=== PATIENT | female | born 1980 | race Two or more races ===

== ENCOUNTER 2016-12-22 16:14 | Emergency (ER) | payer MEDICAID, OTHER ==
[2016-12-22] MEDS ORDERED: TUSS15SY PO (17:36)
--- NOTE | 2016-12-22 17:36 | PD ---
HPI Chief Complaint Left-sided abdominal pain just today Date Seen: December 22, 2016 Travel History International Travel<30 Days: No Contact w/Intl Traveler<30Days: No Known Affected Area: No History of Present Illness HPI This patient is 36-year-old G 3 P2 at [address] Goss who presents complaining of abdominal pain on the left side mainly today. She's had that developed after she had has been coughing all week ,when she coughs it it's really starts to hurt area and she denies leakage of fluid or bleeding or contractions. heart rate tracing is reactive and there are no regular contractions seen. Para: 2 : 3 History Obstetric History Obstetric History 2 vaginal deliveries both at term Social History Alcohol Use: No Tobacco Use: No Substance Abuse: No Allergies-Medications (Allergen,Severity, Reaction): Coded Allergies: No Known Allergies (Unverified , 11/28/14) Home Meds No Active Prescriptions or Reported Meds Review of Systems General / Constitutional: No: Fever, Weight Gain, Chills, Other Eyes: No: Diploplia, Blurred Vision, Visual changes, Pain, Photophobia HENT: No: Headaches, Vertigo, Lightheadedness Cardiovascular: No: Irregular Rhythm, Chest Pain or Discomfort, Palpitations, Tachycardia, Syncope, Varicosities, Edema, Cyanosis Respiratory: Cough, No: Short of Breath, Other Gastrointestinal: Abdominal Pain, No: Nausea, Vomiting, Diarrhea Genitourinary: No: Decreased Urinary Output, Oliguria Musculoskeletal: No: Limited ROM, Weakness, Cramping, Edema, Pain Skin: No Rash, No Itching, No Dryness, No Lumps, No Change in Pigmentation, No Change in Nails, No Alopecia, No Lesions Neurologic: No: Weakness, Dizziness, Syncope, Focal Abnormalities, Coordination Problem, Headache, Slurred Speech, Seizures Psychiatric: No: Depression, Suicidal Ideations, Homicidal Ideation Endocrine: No: Heat Intolerance, Cold Intolerance, Polydipsia, Polyuria, Other Physical Exam Narrative GENERAL: Well-nourished, well-developed patient. SKIN: Warm and dry. HEAD: Normocephalic and atraumatic. EYES: No scleral icterus. No injection or drainage. ENT: No nasal drainage noted. Mucous membranes pink. Airway patent. NECK: Supple, trachea midline. No JVD. CARDIOVASCULAR: Regular rate and rhythm without murmurs, gallops, or rubs. RESPIRATORY: Breath sounds equal bilaterally. No accessory muscle use. BREASTS: Bilateral exam showed no masses , no retractions, no nipple discharge. ABDOMEN/GI: Abdomen soft, non-tender, bowel sounds present, no rebound, no guarding Gravid to [-32] weeks size Fundal Height: [32-] GENITOURINARY: External Genitalia: intact and normal in appearance BUS glands: [-] Cervix: [-]closed Dilatation: [-] closed Effacement: [-] thick Station: [-3] Membranes: [intact ] Uterine Contractions: [none-] FHT's: Category: [1-] Baseline: [133-] Reactive: [yes-] Variability: [-mod] Decels: [-none] EXTREMITIES: No cyanosis or edema. BACK: Nontender without obvious deformity. No CVA tenderness. NEUROLOGICAL: Awake and alert. Motor and sensory grossly within normal limits. Five out of 5 muscle strength in all muscle groups. Normal speech. Data Data Orders Vital Signs (Adult) .ON ADMISSION (12/22/16 17:15) ^ Labor Status (12/22/16 17:15) Urinalysis - C+S If Indicated (12/22/16 17:15) MDM Interpretation(s) Patient is 36-year-old 32 weeks who presents with abdominal pain today mainly after she been coughing all week, no bleeding or rupture the membranes heart rate tracing is reactive and she is not bess. Cervix is closed and high. Urinalysis is pending at this time but if it is positive will treat with antibiotics it is likely to be negative but there is pending at time of this dictation patient was offered a pain shot but she felt that she did not want for her pain. I recommended she take Tylenol 1 or 2 every 4 hours for pain, heating pad on her abdomen is fine, and we'll prescribe her of Tussionex for cough Plan The patient to be at bedrest over the next 24-48 hours using above-mentioned Tylenol and cough medications. And to follow-up with Dr. Goss the first part of this week if symptoms persist Diagnosis Diagnosis: Primary Impression: Abdominal pain during in third trimester Additional Impression: Cough Disposition: 01 DISCHARGE HOME Condition: Stable Scripts Dextromethorphan Liq (Tussin Cough Liq)15 Mg/5 Ml Syp10 Ml PO Q8H PRN (COUGH) # 1 BOTTLE Ref 0 Prov:Deacon Quigley II, MD 12/22/16 Deacon Quigley II, MD December 22, 2016 17:36
[2016-12-22 18:56] LABS: BLOOD, URINE NEG (NEG); GLUCOSE,URINE NEG (NEG); KETONE, URINE NEG (NEG); MUCUS URINE FEW /lpf (OCC); NITRITE,URINE NEG (NEG); SQUAMOUS EPITHELIAL CELL URINE <1 /hpf (0-5); URINE COLOR LIGHT-YELLOW (YELLW/STRAW)
[2016-12-22 18:57] LABS: COMMENT (UR) CULT NOT INDICATED; CULTURE IF INDICATED CULT NOT INDICATED
== END 2016-12-22 18:05 | disposition home or self-care (01) ==
LOC: HOBED 16:14
DX: O26.893 Other specified pregnancy related conditions, third trimester (principal); R10.9 Unspecified abdominal pain; R05 Cough
CPT/HCPCS: 81001; 99284

== ENCOUNTER 2017-02-12 19:52 | Emergency (ER) | payer MEDICAID ==
[~2017-02-12 19:52] MED LIST: TUSS15SY PO
--- NOTE | 2017-02-12 20:36 | PD ---
HPI Chief Complaint Contractions Date Seen: Feb 12, 2017 Travel History International Travel<30 Days: No Contact w/Intl Traveler<30Days: No Known Affected Area: No History of Present Illness HPI This patient is a 36-year-old [address] Goss for care presents complaining of contractions through the day but are painful. Denies bleeding or ruptured membranes. heart rate tracing is reactive and she is bess irregularly now. records are available. Para: 2 : 3 History Past Medical History Narrative Medical Positive history of asthma .,history of HSV and she has been on Valtrex intermittently and acyclovir some point in the past no recent outbreaks noted Obstetric History Obstetric History 2 vaginal deliveries Social History Alcohol Use: No Tobacco Use: No Substance Abuse: No Allergies-Medications (Allergen,Severity, Reaction): Coded Allergies: No Known Allergies (Unverified , 11/28/14) Home Meds Active Scripts Dextromethorphan Liq (Tussin Cough Liq)15 Mg/5 Ml Syp10 Ml PO Q8H PRN (COUGH) # 1 BOTTLE Ref 0 Prov:Deacon Quigley II, MD 12/22/16 Review of Systems General / Constitutional: No: Fever, Weight Gain, Chills, Other Eyes: No: Diploplia, Blurred Vision, Visual changes, Pain, Photophobia HENT: No: Headaches, Vertigo, Lightheadedness Cardiovascular: No: Irregular Rhythm, Chest Pain or Discomfort, Palpitations, Tachycardia, Syncope, Varicosities, Edema, Cyanosis Respiratory: No: Cough, Short of Breath, Other Gastrointestinal: Abdominal Pain, No: Nausea, Vomiting, Diarrhea Genitourinary: No: Decreased Urinary Output, Oliguria Musculoskeletal: No: Limited ROM, Weakness, Cramping, Edema, Pain Skin: No Rash, No Itching, No Dryness, No Lumps, No Change in Pigmentation, No Change in Nails, No Alopecia, No Lesions Neurologic: No: Weakness, Dizziness, Syncope, Focal Abnormalities, Coordination Problem, Headache, Slurred Speech, Seizures Psychiatric: No: Depression, Suicidal Ideations, Homicidal Ideation Endocrine: No: Heat Intolerance, Cold Intolerance, Polydipsia, Polyuria, Other Physical Exam Narrative GENERAL: Well-nourished, well-developed patient. SKIN: Warm and dry. HEAD: Normocephalic and atraumatic. EYES: No scleral icterus. No injection or drainage. ENT: No nasal drainage noted. Mucous membranes pink. Airway patent. NECK: Supple, trachea midline. No JVD. CARDIOVASCULAR: Regular rate and rhythm without murmurs, gallops, or rubs. RESPIRATORY: Breath sounds equal bilaterally. No accessory muscle use. BREASTS: Bilateral exam showed no masses , no retractions, no nipple discharge. ABDOMEN/GI: Abdomen soft, non-tender, bowel sounds present, no rebound, no guarding Gravid to [-39] weeks size Fundal Height: [39-] GENITOURINARY: External Genitalia: intact and normal in appearance BUS glands: [-] Cervix: [-] Dilatation: [3-] Effacement: [-50] Station: [-3] Presentation: [-vtx] Membranes: [intact ] Uterine Contractions: [irreg-] FHT's: Category: [1-] Baseline: [-133] Reactive: [-yes] Variability: [-mod] Decels: [0-] EXTREMITIES: No cyanosis or edema. BACK: Nontender without obvious deformity. No CVA tenderness. NEUROLOGICAL: Awake and alert. Motor and sensory grossly within normal limits. Five out of 5 muscle strength in all muscle groups. Normal speech. MDM Interpretation(s) This patient is a 36-year-old 39 weeks presents clinically contractions, denies bleeding or ruptured membranes. heart rate tracing is reactive and she is bess irregularly. Patient's cervical exam consistent with her typical multiparous cervix and that it is very posterior 50 % at most it's fairly thick cervix and dilated 3 cm. The patient does not appear to be in distress or significant pain really and just general observation Plan Plan to discharge home to let her rest with heating pad or in the bathtub observe what's going on, return for increasing pain bleeding or leakage of fluid. Otherwise follow-up with her OB provider Diagnosis Diagnosis: Primary Impression: False labor after 37 weeks of gestation without delivery Disposition: 01 DISCHARGE HOME Condition: Stable Deacon Quigley II, MD Feb 12, 2017 20:36
== END 2017-02-12 20:30 | disposition home or self-care (01) ==
LOC: HOBED 19:52
DX: O47.1 False labor at or after 37 completed weeks of gestation (principal); Z87.09 Personal history of other diseases of the respiratory system; Z87.2 Personal history of diseases of the skin and subcutaneous tissue; Z3A.39 39 weeks gestation of pregnancy
CPT/HCPCS: 99282

== ENCOUNTER 2017-02-20 12:40 | Inpatient (IN) | payer MEDICAID ==
[2017-02-20] VITALS (35 sets, daily range): BP systolic 94–142; BP diastolic 57–104; PULSE 75–238; RESP 17–19; TEMP 97.7–98.2; O2SAT 97–100
[~2017-02-20] VITALS: Ht 149.9 cm; Wt 83.2 kg
[2017-02-20] MEDS ORDERED: VALT500T PO (13:22)
[2017-02-20] MEDS: LACTATED RINGER'S 1000 ML INJ 1,000 ML IV SCH ×2 (13:38→20:47)
[2017-02-20] MEDS ORDERED: LACTATED RINGER'S 1000 ML INJ 1,000 ML IV PRN (13:38)
[2017-02-20] MEDS ORDERED: OXYTOCIN 30 UNITS-500ML PREMIX 500 ML IV ONE ×2 (13:45→22:00)
[2017-02-20] MEDS ORDERED: ONDANSETRON HCL 4 MG/2 ML VIAL IV PRN (13:45)
[2017-02-20] MEDS ORDERED: CITRIC ACID-SODIUM CITRATE LIQ 30 ML UDC PO SCH (13:45)
[2017-02-20] MEDS ORDERED: SODIUM CHLORID 0.9% 500 ML INJ 500 ML IV PRN (13:45)
[2017-02-20] MEDS ORDERED: LIDOCAINE HCL 1% 50 ML VIAL I-DERMAL PRN (13:45)
[2017-02-20] MEDS ORDERED: LIDOCAINE HCL 1% 50 ML VIAL INFIL PRN (13:45)
[2017-02-20] MEDS ORDERED: MINERAL OIL 10 ML VIAL TOPICAL PRN (13:45)
--- NOTE | 2017-02-20 13:46 | HHI.HP ---
HPI Chief Complaint seen by Dr. Goss in office, pt c/o labor pain, contractions, pelvic pressure , crying due to pain Date Seen: Feb 20, 2017 Time Seen: 11:40 Travel History International Travel<30 Days: No Contact w/Intl Traveler<30Days: No Known Affected Area: No History of Present Illness HPI 36 yo with EDC 02/16/17 presents to routine OB visit at office with c/o pelvic pressure, contractions since yesterday. No LOF or VB. Endorses good FM. Pain 12/26. Crying due to pain. Has been taking Valtrex for prophylaxis as prescribed, no prodrome, no lesions. Para: 2 : 3 Last Menstrual Period: May 12, 2016 Miscarriage: 0 : 0 History Past Medical History Narrative Medical asthma HSV advanced maternal age Obstetric History Obstetric History G1 = FT 11/02/2006 female 7#6oz born in [place] G2 = FT 06/24/2009 female 7#12oz born in [place] G3 = current, female Past Surgical History Narrative Surgical denies Family History Family History: Negative Social History Alcohol Use: No Tobacco Use: No Substance Abuse: No Allergies-Medications (Allergen,Severity, Reaction): Coded Allergies: No Known Allergies (Unverified , 02/20/17) Home Meds Reported Medications Valacyclovir (Valtrex)500 Mg Pwl079 Mg PO DAILY #30 TAB Ref 0 02/20/17 Discontinued Scripts Dextromethorphan Liq (Tussin Cough Liq)15 Mg/5 Ml Syp10 Ml PO Q8H PRN (COUGH) # 1 BOTTLE Ref 0 Prov:Deacon Quigley II, MD 12/22/16 Review of Systems General / Constitutional: Weight Gain, No: Fever, Chills, Other Eyes: No: Diploplia, Blurred Vision, Visual changes, Pain, Photophobia HENT: No: Headaches, Vertigo, Lightheadedness Cardiovascular: No: Irregular Rhythm, Chest Pain or Discomfort, Palpitations, Tachycardia, Syncope, Varicosities, Edema, Cyanosis Respiratory: No: Cough, Short of Breath, Other Gastrointestinal: No: Nausea, Vomiting, Diarrhea Genitourinary: Pelvic Pain (contractions), No: Decreased Urinary Output, Oliguria Musculoskeletal: No: Limited ROM, Weakness, Cramping, Edema, Pain Skin: No Rash, No Itching, No Dryness, No Lumps, No Change in Pigmentation, No Change in Nails, No Alopecia, No Lesions Neurologic: No: Weakness, Dizziness, Syncope, Focal Abnormalities, Coordination Problem, Headache, Slurred Speech, Seizures Psychiatric: No: Depression, Suicidal Ideations, Homicidal Ideation Endocrine: No: Heat Intolerance, Cold Intolerance, Polydipsia, Polyuria, Other Physical Exam Narrative GENERAL: Well-nourished, well-developed patient. SKIN: Warm and dry. HEAD: Normocephalic and atraumatic. EYES: No scleral icterus. No injection or drainage. ENT: No nasal drainage noted. Mucous membranes pink. Airway patent. NECK: Supple, trachea midline. No JVD. CARDIOVASCULAR: Regular rate and rhythm without murmurs, gallops, or rubs. RESPIRATORY: Breath sounds equal bilaterally. No accessory muscle use. BREASTS: deferred ABDOMEN/GI: Abdomen soft, non-tender, bowel sounds present, no rebound, no guarding Gravid to 40 weeks size Fundal Height: 40 GENITOURINARY: exam per Dr. Goss External Genitalia: intact and normal in appearance BUS glands: [wnl] Cervix: [mid] Dilatation: [4] Effacement: [50] Station: [-3] Presentation: [vtx] Membranes: [intact FHT's: 8/8 BPP in office EXTREMITIES: No cyanosis or edema. BACK: Nontender without obvious deformity. No CVA tenderness. NEUROLOGICAL: Awake and alert. Motor and sensory grossly within normal limits. Five out of 5 muscle strength in all muscle groups. Normal speech. Data Data Vital Signs Reviewed: Yes Orders Admit To Inpatient (02/20/17 ) Code Status (02/20/17 13:38) Vital Signs (Adult) .Per protocol (02/20/17 13:38) Activity Oob Ad Muriel (02/20/17 13:38) Heart (02/20/17 13:38) Amnioinfusion (02/20/17 13:38) Urinary Catheter Management .ONCE (02/20/17 13:38) Diet Liquid (02/20/17 Lunch) Lactated Ringer's 1000 Ml Inj (Lr 1000 M (02/20/17 13:38) Lactated Ringer's 1000 Ml Inj (Lr 1000 M (02/20/17 13:38) Sodium Chlorid 0.9% 500 Ml Inj (Ns 500 M (02/20/17 13:45) Sodium Chlor 0.9% 1000 Ml Inj (Ns 1000 M (02/20/17 13:58) Lidocaine 1% Inj (50 Ml) (Xylocaine 1% I (02/20/17 13:45) Citric Acid-Sodium Citrate Liq (Bicitra (02/20/17 13:45) Ondansetron Inj (Zofran Inj) (02/20/17 13:45) Fentanyl Inj (Fentanyl Inj) (02/20/17 13:45) Fentanyl Inj (Fentanyl Inj) (02/20/17 13:45) Complete Blood Count With Diff (02/20/17 13:38) Hold Clot (02/20/17 13:38) Abo/Rh Blood Type (02/20/17 13:38) Urinalysis - C+S If Indicated (02/20/17 13:38) Resp Oxygen Non Rebreathe Mask (02/20/17 ) ^ Epidural / Intrathecal Infus (02/20/17 13:38) Oxytocin 30 Units-500ml Premix (Pitocin (02/20/17 13:45) Lidocaine 1% Inj (50 Ml) (Xylocaine 1% I (02/20/17 13:45) Light Mineral Oil (Muri-Lube Oil) (02/20/17 13:45) Inpatient Certification (02/20/17 ) Specimen To Be Collected PRN (02/20/17 13:38) Assessment/Plan Problem List: (1) Labor and delivery indication for care or intervention Assessment and Plan 36 yo with EDC 02/16/17, presents to office visit in labor, sent to L&D 1) labor: admit, augment as necessary, epidural if desired, anticipate 2) GBS neg 3) h/o HSV: no active lesions or prodrome, on preventative Valtrex since 36 wks 4) AMA: neg cfDNA & neg msAFP, normal anatomy 5) asthma, mild intermittent, albuterol INH prn 6) status: vertex, female, 8/8 BPP in office Discharge Planning routine, 2d PP Phoebe Hernandez MD Feb 20, 2017 13:46
[2017-02-20 13:52] LABS: AUTOMATED NEUTROPHIL # 8.3 TH/MM3 (1.8-7.7); BASOPHIL % 0.4 % (0.0-2.0); EOSINOPHIL # 0.1 TH/MM3 (0-0.4); EOSINOPHIL % 1.4 % (0.0-4.0); HEMATOCRIT 38.2 % (35.0-46.0); HEMO FLAGS DIFF FINAL; LYMPH % 13.2 % (9.0-44.0); LYMPHOCYTE # 1.4 TH/MM3 (1.0-4.8); MEAN CELL VOLUME 88.1 FL (80.0-100.0); MEAN CORPUSCULAR HEMOGLOBIN 30.1 PG (27.0-34.0); MEAN CORPUSCULAR HGB CONC 34.2 % (32.0-36.0); MONO % 7.2 % (0.0-8.0); NEUT % 77.8 % (16.0-70.0); PLATELET COUNT 225 TH/MM3 (150-450); RED BLOOD COUNT 4.34 MIL/MM3 (4.00-5.30); RED CELL DISTRIBUTION WIDTH 18.5 % (11.6-17.2); WHITE BLOOD COUNT 10.7 TH/MM3 (4.0-11.0)
[2017-02-20] MEDS ORDERED: SODIUM CHLOR 0.9% 1000 ML INJ 1,000 ML IV PRN (13:58)
[2017-02-20] MEDS ORDERED: OXYTOCIN 30 UNITS-500ML PREMIX 500 ML IV SCH (14:00)
[2017-02-20 14:01] LABS: BLOOD, URINE NEG (NEG); GLUCOSE,URINE NEG (NEG); KETONE, URINE NEG (NEG); NITRITE,URINE NEG (NEG); URINE COLOR LIGHT-YELLOW (YELLW/STRAW)
[2017-02-20 14:06] LABS: COMMENT (UR) CULT NOT INDICATED; CULTURE IF INDICATED CULT NOT INDICATED
[2017-02-20] MEDS ORDERED: ePHEDrine/NS 25 MG/5 ML SYR ONE (19:15)
[2017-02-20] MEDS ORDERED: fentaNYL 2MCG-BUPIV 0.125% INJ 100 ML ONE (19:15)
[2017-02-20] MEDS ORDERED: BUPIVACAINE HCL PF 0.25% 10 ML VIAL ONE (19:26)
[2017-02-20] MEDS ORDERED: ePHEDrine/NS 25 MG/5 ML SYR IV PRN (20:45)
[2017-02-20] MEDS ORDERED: DO NOT ADMINISTER ANTICOAGULANTS PRN (20:45)
[2017-02-20] MEDS ORDERED: NO SYSTEM NARCOTICS PRN (20:45)
[2017-02-20] MEDS ORDERED: fentaNYL 2MCG-BUPIV 0.125% 100 ML EPIDURAL SCH (20:45)
[2017-02-20] MEDS ORDERED: LACTATED RINGER'S 1000 ML INJ 1,000 ML IV ONE (21:08)
[2017-02-20] MEDS ORDERED: OXYTOCIN 10 UNIT/ML AMP ONE (21:17)
[2017-02-20] MEDS ORDERED: ceFAZolin INJ 1,000 MG VIAL ONE (21:18)
[2017-02-20] MEDS ORDERED: LACTATED RINGER'S 1000 ML INJ 1,000 ML IV SCH (21:38)
--- NOTE | 2017-02-20 21:58 | PD.OB.DELI ---
Procedure Note Section Procedure Pre Op Diagnosis: (1) Face presentation of fetus Post Op Diagnosis: (1) Face presentation of fetus (2) Status post primary low transverse section Performed by Phoebe Hernandez Procedure: Primary Low Transverse Sec Indication for delivery: malposition (face presentation in active labor) Informed consent obtained: For anesthesia, For procedure Confirmed correct: Other (due to STAT nature of procedure no time out) Anesthesia: None (general endotracheal) Medication prior to procedure: As documented in eMAR Monitoring during procedure: Blood pressure monitoring, electroencephalographic technician, Pulse oximetry Urinary catheter: Inserted using sterile technique (in room during labor process), ml urine output (300) Sterile preparation: With 10% povidone iodine (Betadine), With drapes to expose affected area Position: Supine with wedge to right side Operative Features Skin Incision: Pfannenstiel Uterine Incision: Low transverse w/knife / blunt ext Membranes Ruptured: Previously Presentation: Face presentation (mentum posterior) Delivery of : Uneventful Infant: Female One Minute : 9 Five Minute : 9 Weight: 8#3oz Status of : Viable, Cord blood, Nursery present Placenta delivered: Intact Medications: Antibiotics (Ancef 2g IV) Estimated blood loss: 500 mL Procedure tolerated: Well Maternal Condition: Stable Condition: Stable Procedure in detail see dictated op note Phoebe Hernandez MD Feb 20, 2017 21:57
[2017-02-20] MEDS: SODIUM CHLORIDE 0.9% FLUSH 10 ML FLUSH IV FLUSH SCH (22:00)
[2017-02-20] MEDS ORDERED: ZOLPIDEM TARTRATE 5 MG TAB PO PRN (22:00)
[2017-02-20] MEDS ORDERED: oxyCODONE/ACETAMINOPHEN 5 MG/325 MG TAB PO PRN (22:00)
[2017-02-20] MEDS ORDERED: IBUPROFEN 600 MG TAB PO PRN (22:00)
[2017-02-20] MEDS ORDERED: KETOROLAC TROMETHAMINE 60 MG/2 ML (IM) VIAL IM PRN (22:00)
[2017-02-20] MEDS ORDERED: ACETAMINOPHEN 1000 MG/100 ML VIAL IV ONE ×2 (22:00→22:24)
[2017-02-20] MEDS ORDERED: SODIUM CHLORIDE 0.9% FLUSH 10 ML FLUSH IV FLUSH PRN (22:00)
[2017-02-20] MEDS ORDERED: ACETAMINOPHEN 325 MG TAB PO PRN (22:00)
[2017-02-20] MEDS ORDERED: ONDANSETRON HCL 4 MG/2 ML VIAL IV PUSH PRN (22:00)
[2017-02-20] MEDS ORDERED: fentaNYL CITRATE 250 MCG/5 ML AMP ONE (22:03)
[2017-02-20] MEDS ORDERED: MORPHINE SULFATE PF 5 MG/10 ML VIAL ONE (22:04)
[2017-02-20] MEDS ORDERED: OXYTOCIN 30 UNITS-500ML PREMIX 500 ML ONE (22:23)
[2017-02-20] MEDS ORDERED: PROPOFOL 200 MG/20 ML AMP IV PUSH ONE (22:34)
[2017-02-20] MEDS ORDERED: LACTATED RINGER'S 1,000 ML BAG IV ONE (22:34)
[2017-02-20] MEDS ORDERED: KETOROLAC TROMETHAMINE 30 MG/ML (IVP) VIAL ONE (22:48)
[2017-02-20] MEDS ORDERED: SODIUM CHLORIDE 0.9% FLUSH 5 ML FLUSH ONE (23:43)
[2017-02-21] VITALS (9 sets, daily range): BP systolic 95–106; BP diastolic 61–67; PULSE 86–113; RESP 17–26; TEMP 98–98.8; O2SAT 98–100
[2017-02-21 00:19] LABS: AUTOMATED NEUTROPHIL # 15.3 TH/MM3 (1.8-7.7); BASOPHIL % 0.2 % (0.0-2.0); HEMATOCRIT 32.3 % (35.0-46.0); HEMO FLAGS DIFF FINAL; LYMPH % 5.2 % (9.0-44.0); LYMPHOCYTE # 0.9 TH/MM3 (1.0-4.8); MEAN CELL VOLUME 88.2 FL (80.0-100.0); MEAN CORPUSCULAR HEMOGLOBIN 29.9 PG (27.0-34.0); MEAN CORPUSCULAR HGB CONC 33.9 % (32.0-36.0); NEUT % 91.6 % (16.0-70.0); PLATELET COUNT 278 TH/MM3 (150-450); RED BLOOD COUNT 3.67 MIL/MM3 (4.00-5.30); RED CELL DISTRIBUTION WIDTH 18.3 % (11.6-17.2); WHITE BLOOD COUNT 16.7 TH/MM3 (4.0-11.0)
[2017-02-21] MEDS ORDERED: ceFAZolin INJ 1,000 MG VIAL ONE (00:27)
[2017-02-21] MEDS ORDERED: METHYLERGONOVINE MALEATE 0.2 MG/ML VIAL ONE ×5 (00:52→01:30)
[2017-02-21] MEDS ORDERED: MISOPROSTOL 200 MCG TAB ONE (01:01)
[2017-02-21 01:16] LABS: APTT (PATIENT) 28.1 SEC (24.3-30.1); INTERNATIONAL NORMALIZED RATIO 0.9 RATIO
[2017-02-21 01:26] LABS: BLOOD GAS BASE EXCESS -8.5 mmol/L (-2-2); BLOOD GAS CARBOXYHEMOGLOBIN 1.5 % (0-4); BLOOD GAS HCO3 16 mmol/L (22-26); BLOOD GAS METHEMOGLOBIN 1.1 % (0-2); BLOOD GAS O2 HGB SATURATION 97 % (90-100); BLOOD GAS OXYGEN CONTENT 14.9 Vol % (12.0-20.0); BLOOD GAS PCO2 31 mmHg (38-42); BLOOD GAS PO2 246 mmHg (61-120); BLOOD GAS TOTAL HGB 10.5 G/DL (12.0-16.0); TEMP CORR TO 98.6
[2017-02-21 01:27] LABS: CRITICAL VALUE YES; FIO2 50 %; OXYGEN DEVICE VENTILATOR; STAT YES; VENT SETTINGS O.R. GAS
--- NOTE | 2017-02-21 02:29 | RADRPT ---
EXAM DATE/TIME: 02/21/2017 02:01 [facility] COMPARISON: No previous studies available for comparison. INDICATIONS : Evalute for foreign body. Labor and delivery. MEDICAL HISTORY : None. SURGICAL HISTORY : None. ENCOUNTER: Initial ACUITY: 1 day PAIN SCORE: Non-responsive. LOCATION: Bilateral abdomen. FINDINGS: Supine view of the abdomen was performed. The abdominal bowel gas pattern is normal. No abnormal ma sses, calcifications, or organomegaly is seen. The osseous structures are unremarkable.clips in pelv is. CONCLUSION: No foreign body. Robert Hilton MD on February 21, 2017 at 2:26 Board Certified Radiologist. This report was verified electronically.
[2017-02-21] MEDS ORDERED: diphenhydrAMINE HCL 50 MG/ML VIAL IV PRN (02:45)
[2017-02-21] MEDS ORDERED: NALOXONE HCL 0.4 MG/ML AMP IV PRN (02:45)
[2017-02-21] MEDS ORDERED: SENNOSIDES 8.6 MG TAB PO PRN (02:45)
[2017-02-21] MEDS ORDERED: BISACODYL 10 MG SUPP RECTAL PRN (02:45)
[2017-02-21] MEDS ORDERED: LACTULOSE SYRUP 20 GM/30 ML CUP PO PRN (02:45)
[2017-02-21] MEDS ORDERED: MAGNESIUM HYDROXIDE SUSP 30 ML CUP PO PRN (02:45)
[2017-02-21] MEDS ORDERED: LACTATED RINGER'S 1000 ML INJ 1,000 ML IV SCH (02:58)
--- NOTE | 2017-02-21 03:02 | HHI.PR ---
Immediate Post Op Note Procedure Date: Feb 21, 2017 Pre Op Diagnosis: (1) Postoperative hypotension (2) Postoperative hematoma involving genitourinary system following genitourinary procedure Post Op Diagnosis: (1) Postoperative hematoma involving genitourinary system following genitourinary procedure Surgeon: Phoebe Hernandez MD Intraoperative Consult: General/Trauma Surgery : Meka Velarde MD Employee Welfare Manager(s): Essence Eugene MD Intraoperative Consult General/Trauma Surgeon Meka Velarde MD Procedure: Exploratory laparotomy Ligation R uterine artery Findings: large right broad ligament and retroperitoneal hematoma laceration of accessory branches of R uterine artery Complications: right broad ligament hematoma/retroperitoneal hematoma following STAT delivery, change in status approximately 1 hour 15 min after concluded Specimen(s) removed: none Estimated blood loss: 300 mL Anesthesia: General Drains: None Fluids: 3800mL crystalloid, 2 units PRBC IVF, PRBC Patient to: PACU (then to [facility]) Patient Condition: Good Phoebe Hernandez MD Feb 21, 2017 03:02
[2017-02-21] MEDS ORDERED: fentaNYL CITRATE 250 MCG/5 ML AMP ONE (03:12)
[2017-02-21 05:42] LABS: AUTOMATED NEUTROPHIL # 14.2 TH/MM3 (1.8-7.7); BASOPHIL % 0.1 % (0.0-2.0); HEMO FLAGS DIFF FINAL; LYMPH % 6.3 % (9.0-44.0); MEAN CELL VOLUME 87.1 FL (80.0-100.0); MEAN CORPUSCULAR HEMOGLOBIN 29.4 PG (27.0-34.0); MEAN CORPUSCULAR HGB CONC 33.8 % (32.0-36.0); MONO % 5.6 % (0.0-8.0); PLATELET COUNT 201 TH/MM3 (150-450); RED BLOOD COUNT 4.02 MIL/MM3 (4.00-5.30); RED CELL DISTRIBUTION WIDTH 16.8 % (11.6-17.2); WHITE BLOOD COUNT 16.1 TH/MM3 (4.0-11.0)
[2017-02-21 05:47] LABS: APTT (PATIENT) 28.2 SEC (24.3-30.1); INTERNATIONAL NORMALIZED RATIO 0.9 RATIO; PROTHROMBIN TIME - PATIENT 9.8 SEC (9.8-11.6)
[2017-02-21 06:00] LABS: BICARBONATE 24.5 MEQ/L (21.0-32.0); POTASSIUM 3.7 MEQ/L (3.5-5.1)
[2017-02-21] MEDS: PCA - TOTAL MG MORPHINE DELIVERED PER SHIFT SCH ×3 (06:00→22:00)
[2017-02-21] MEDS ORDERED: OXYTOCIN 30 UNITS-500ML PREMIX 500 ML IV PRN (08:00)
[2017-02-21] MEDS: AMPICILLIN-SULBACTAM INJ 3 GM in SODIUM CHLORIDE 0.9% INJ 100 ML IV SCH ×4 (08:45→22:41)
[2017-02-21] MEDS: SODIUM CHLORIDE 0.9% FLUSH 10 ML FLUSH IV FLUSH SCH (09:00)
--- NOTE | 2017-02-21 09:23 | PD ---
History of Present Illness Date Seen: Feb 21, 2017 Time Seen: 12:00 History of Present Illness Called by RN in recovery room to evaluate patient. Pt is a 36 y/o P3 s/p primary stat with Dr. Hernandez for face presentation, mentum posterior. RN reports patient was doing well then c/o sudden onset severe RLQ pain. Rn also noted no urinary output into azevedo catheter. She tried flushing and replacing the catheter but no urine draining. On exam, extreme tenderness in RLQ present, uterus was deviated to patient's left side. Dr. Hernandez was notified of patient's symptoms. I requested bladder scan which did not show full bladder, 194 ml was max volume noted. Patient had stable vital signs consistent with her pre-op VS but appeared pale. At this point, I was concerned for hematoma in the broad ligament that was pushing the uterus to the left and and possibly compressing/obstructing bladder. I ordered stat hemoglobin. Hemoglobin was drawn. Pt then began to c/o dizziness and blood pressure dropped to 60s/30s. I advised RN at bedside and charge nurse that we needed to return to OR stat for abdominal exploration. Dr. Hernandez notifed and enroute. Pt taken to OR and I opened patient and broad ligament hematoma on the right was present and it extended along the posterior retroperitoneal space up to the liver edge. For full details of operation, please see dictation by Dr. Hernandez. Elizabeth Eugene MD Feb 21, 2017 09:23
[2017-02-21] MEDS: MORPHINE SULFATE 30 MG/30 ML PCA IV SCH ×2 (09:24→22:54)
--- NOTE | 2017-02-21 10:09 | MP ---
cc: STAN ARAGON M.D. DATE OF SURGERY: 02/20/2017 PREOPERATIVE DIAGNOSIS 1. Active labor at term. 2. malpresentation, face presentation with mentum posterior. POSTOPERATIVE DIAGNOSIS 1. Active labor at term. 2. malpresentation, face presentation with mentum posterior. 3. Postop day number zero. INDICATIONS Autumn José is a 36-year-old 3, now para 3-0-0-3 at 40 weeks and 4 days, who was seen and evaluated in the office with complaints of labor pains, contractions, was found to be 4 cm dilated, 50% effaced with high station. The patient was admitted for labor management, augmentation as needed. The patient progressed in labor. She was augmented with low-dose Pitocin IV. She had spontaneous rupture of membranes at approximately 06:00 p.m. and progressed to complete station. The heart tracing showed some variable decelerations and so on physician examination of face was palpated with nose, mouth, and eyes easily palpated, face presentation was diagnosed mentum posterior, as such it was decided for emergent due to this finding. PROCEDURE PERFORMED Stat low transverse delivery. COMPLICATIONS None. COUNTS Sponge, lap, instrument, needle count correct x2 at the conclusion of the procedure. SURGEON Stan Aragon MD ANESTHESIA General endotracheal due to the patient's epidural not having adequate anesthetic effect. ESTIMATED BLOOD LOSS 500 mL. IV FLUID REPLACEMENT 1800 mL. URINE OUTPUT 300 mL of clear urine draining in the Rhodes bag at the end of the procedure. PROPHYLAXIS SCDs were on and functioning throughout the entire case. Ancef 2g IV was given at the time of abdominal incision. INTRAOPERATIVE FINDINGS Include a vigorous viable female weighing 8 pounds 3 ounces. Apgars of 9 and 9. The infant was in face presentation with mentum posterior. There was some slight bruising to the buddhism and forehead noted on delivery. Also, a body cord that was delivered through. The amniotic fluid had been clear upon spontaneous rupture during labor process. Placenta was intact and normal-appearing. The uterus was felt to be somewhat enlarged, was unable to be delivered, after delivery of the fetus it was unclear if there was a large fundal fibroid or not, adnexa were not visualized due to uterus not being exteriorized after delivery of fetus. PROCEDURE IN DETAIL Due to the stat nature of the , the patient was rushed to the operating room from the labor suite, a time-out was not performed. Betadine was splashed onto the abdomen. Rhodes was already in place as part of the labor process. The patient was draped and general endotracheal anesthesia was performed. Scalpel was then used to make a Pfannenstiel incision from the skin down to and through the underlying layer of fascia which was then bluntly. Rectus muscles were bluntly. Peritoneum was entered bluntly. A bladder blade was placed. A low transverse uterine incision was made with a scalpel and this was extended bluntly. The 's head and face were grasped, flexed into the appropriate position for safe delivery, body cord was delivered through, cord was clamped and cut and the was immediately handed to the awaiting nursery staff for evaluation. Infant was immediately crying upon delivery. Placenta was delivered spontaneously with gentle cord traction and fundal massage. Due to large size of the uterus the uterus was not exteriorized but it was cleared of clots and debris with sterile moist lap sponges. Hysterotomy was repaired in a double layer using #1 Chromic first in a running locked fair then in a imbricating fashion. Irrigation with suction was performed. Excellent hemostasis was noted. Interceed was placed as an additional adhesion barrier over the repaired hysterotomy. Peritoneum was then closed in a running layer with 2-0 Chromic. Fascia was closed in a running layer with #1 Vicryl. Subcutaneous tissue was irrigated copiously and skin was closed in subcuticular fashion with 4-0 Monocryl. The procedure concluded at this point. A standard dressing was placed. The patient was awoken from anesthesia without complication. DISPOSITION The patient is resting in the Post Anesthesia Care Unit. Her infant is nursery status. Estimated length of stay is three postoperative days. MD SACHIN Quijano/MALOU /10:06 PM /9:46 AM [facility]UB[facility]
[2017-02-21 12:59] LABS: AUTOMATED NEUTROPHIL # 10.5 TH/MM3 (1.8-7.7); BASOPHIL % 0.2 % (0.0-2.0); EOSINOPHIL % 0.1 % (0.0-4.0); HEMATOCRIT 29.3 % (35.0-46.0); HEMO FLAGS DIFF FINAL; LYMPH % 12.1 % (9.0-44.0); LYMPHOCYTE # 1.6 TH/MM3 (1.0-4.8); MEAN CELL VOLUME 87.6 FL (80.0-100.0); MEAN CORPUSCULAR HEMOGLOBIN 30.2 PG (27.0-34.0); MEAN CORPUSCULAR HGB CONC 34.5 % (32.0-36.0); MONO % 8.8 % (0.0-8.0); NEUT % 78.8 % (16.0-70.0); PLATELET COUNT 194 TH/MM3 (150-450); RED BLOOD COUNT 3.35 MIL/MM3 (4.00-5.30); RED CELL DISTRIBUTION WIDTH 17.3 % (11.6-17.2); WHITE BLOOD COUNT 13.3 TH/MM3 (4.0-11.0)
--- NOTE | 2017-02-21 13:28 | HHI.OB ---
Subjective Post Operative Day: 1 Remarks postop day #1 s/p STAT primary LTCD for malpresentation/face presentation in active labor postop day #0 s/p exploratory laparotomy & R uterine artery ligation for postoperative hypotension, finding of retroperitoneal/R broad ligament hematoma overall doing great; sitting up in bed, pumping breastmilk, states pain is well controlled, denies dizzines, fatigue, nausea; has been tolerating liquid diet, pain 2/10 at incision, dull ache, R>L Objective Vitals/I&O Vital Signs Date Time Temp Pulse Resp B/P Pulse Ox O2 Delivery O2 Flow Rate FiO2 02/21/17 12:00 98.3 95 26 100/62 98 02/21/17 12:00 95 02/21/17 10:00 86 02/21/17 09:24 16 02/21/17 08:52 100 Nasal Cannula 1.00 02/21/17 08:00 98.8 92 17 106/67 99 02/21/17 08:00 92 02/21/17 07:00 100 Room Air 2.00 02/21/17 06:00 100 Room Air 2.00 02/21/17 06:00 20 02/21/17 06:00 98 02/21/17 04:30 99.3 98 20 112/68 100 Nasal Cannula 2 02/21/17 04:15 101 20 111/74 100 Nasal Cannula 2 02/21/17 04:00 92 17 105/67 100 Nasal Cannula 2 02/21/17 03:45 88 18 106/69 100 Nasal Cannula 3 02/21/17 03:30 92 21 110/72 100 Nasal Cannula 3 02/21/17 03:15 97 20 108/76 100 Nasal Cannula 3 02/21/17 03:00 99.3 101 20 123/79 100 Nasal Cannula 3 02/20/17 23:00 115/66 02/20/17 22:45 90 18 120/68 98 02/20/17 22:30 102 18 99 02/20/17 22:15 100 02/20/17 22:14 91 18 109/66 02/20/17 22:00 97 02/20/17 22:00 97.7 97 18 118/70 02/20/17 21:01 92 97/85 02/20/17 20:31 82 110/72 02/20/17 20:16 113 112/57 7/5/17 20:10 97 117/71 02/20/17 20:08 75 120/68 02/20/17 20:06 79 131/71 02/20/17 20:01 238 126/104 02/20/17 19:56 85 131/70 02/20/17 19:52 90 142/79 02/20/17 19:50 89 02/20/17 19:45 81 125/70 02/20/17 19:42 96 94/68 02/20/17 19:40 89 02/20/17 19:36 82 121/60 02/20/17 18:45 18 02/20/17 18:15 98.2 19 02/20/17 18:13 83 124/83 02/20/17 17:13 18 02/20/17 17:00 86 116/78 02/20/17 16:41 18 02/20/17 16:38 76 111/74 02/20/17 15:59 18 02/20/17 15:15 18 02/20/17 15:00 88 113/70 02/20/17 14:45 18 02/20/17 14:30 85 115/73 02/20/17 14:10 17 02/20/17 14:03 87 120/77 02/20/17 14:00 18 02/20/17 14:00 19 Intake & Output 02/21/17 02/21/17 07:00 19:00 Intake Total 4862 ml Output Total 935 ml Balance 3927 ml Intake Oral 260 ml IV Total 802 ml Other 3800 ml Output Urine Total 615 ml Estimated Blood Loss 320 ml Result Diagram: 02/21/17 1221 02/21/17 0514 Objective Remarks GENERAL: Well-nourished, well-developed patient. CARDIOVASCULAR: Regular rate and rhythm without murmurs, gallops, or rubs. RESPIRATORY: Breath sounds equal bilaterally. No accessory muscle use. ABDOMEN/GI: Abdomen soft, non-tender, bowel sounds present. Incision: binding in place. Dry. Fundus: Firm, non-tender at umbilicus. GENITOURINARY: Light bleeding. EXTREMITIES: No cyanosis or edema, non-tender, without signs of DVT. Medications and IVs Current Medications Medications (Trade) Dose Ordered Sig/Jacquelin Route Start Time Stop Time Status Last Admin (NS Flush) 2 ml BID IV FLUSH 02/20/17 22:00 02/21/17 09:00 (NS Flush) 2 ml UNSCH PRN IV FLUSH 02/20/17 22:00 (Mylicon Chew) 80 mg QID PRN PO 02/20/17 22:00 (Tylenol) 650 mg Q6H PRN PO 02/20/17 22:00 (Percocet 5-325 Mg) 1 tab Q4H PRN PO 02/20/17 22:00 (Percocet 5-325 Mg) 2 tab Q4H PRN PO 02/20/17 22:00 (Teri-Colace) 2 tab Q12H PRN PO 02/20/17 22:00 (M-M-R Ii Inj) 0.5 ml ONCE ONCE SQ 02/21/17 16:00 02/21/17 16:01 (Boostrix Inj) 0.5 ml ONCE ONCE IM 02/21/17 16:00 02/21/17 16:01 (Zofran Inj) 4 mg Q6H PRN IV PUSH 02/20/17 22:00 (Narcan Inj) 0.4 mg UNSCH PRN IV 02/21/17 02:45 (Benadryl Inj) 25 mg Q6H PRN IV 02/21/17 02:45 (Morphine 1 Mg/ ml JOURNALISM PROFESSOR) 30 mg UNSCH IV 02/21/17 02:45 02/21/17 09:24 JOURNALISM PROFESSOR Dosage Infused (Pha) 1 1 Q8HR .XX 02/21/17 06:00 02/21/17 06:00 (Unasyn Inj/NS Inj) 100 ml @ 200 mls/hr Q6H IV 02/21/17 02:45 02/22/17 02:45 02/21/17 08:45 (Milk Of Magnesia Liq) 30 ml Q12H PRN PO 02/21/17 02:45 (Senokot) 17.2 mg Q12H PRN PO 02/21/17 02:45 (Dulcolax Supp) 10 mg DAILY PRN RECTAL 02/21/17 02:45 (Lactulose Liq) 30 ml DAILY PRN PO 02/21/17 02:45 Assessment/Plan Problem List: (1) Labor and delivery indication for care or intervention Assessment and Plan POD#1 s/p emergency LTCD for face presentation in labor (mentum posterior); POD# 0 s/p exploratory laparotomy & R uterine artery ligation for acute hypotension & finding of R broad ligament/retroperitoneal hematoma postop: doing well, vitals wnl, tolerating clears, pain well controlled; at this time will advance diet, transfer from [facility] to floor, will check AM H/H & plan d/c azevedo & JOURNALISM PROFESSOR in AM 02/22/17 : pumping while in [facility], plans to breastfeed, female nursery status dispo: not yet meeting d/c criteria; due to ex-lap & hematoma suspect will stay through Saturday02/23/17 Discharge Planning not yet meeting criteria possibly POD#3 or #4 Phoebe Hernandez MD Feb 21, 2017 13:28
--- NOTE | 2017-02-21 13:53 | MP ---
cc: STAN ARAGON M.D. DATE OF SURGERY: February 21, 2017 PREOPERATIVE DIAGNOSIS 1. Postoperative hypotension, tachycardia following a stat delivery. 2. Decreased urine output following stat delivery. 3. Concern for hematoma intraperitoneally. POSTOPERATIVE DIAGNOSIS 1. Postoperative hypotension, tachycardia following a stat delivery. 2. Decreased urine output following stat delivery. 3. Right broad ligament hematoma and retroperitoneal hematoma. 4. Uterine atony. 5. Postop day number zero. INDICATIONS Autumn José is a 36-year-old, 3, para 3-0-0-3, who in the late evening hours of February 20, 2017 had a stat delivery for face presentation in labor. She initially did well in the first hour following the procedure but at around the one hour marysol the nurses began to notice a decreased urine output, Rhodes was flushed, removed, replaced. The bladder was palpated high in the pelvis and the uterus was deviated to the left of midline. Bladder scanner was obtained and approximately 175 mLs of urine were seen in the bladder which was normally distended, although the patient began to complain of severe right flank pain. At the time of patient pain complaint her vitals became unstable with hypotension, a blood pressure 60/30. OB Hospitalist Dr. Elizabeth Eugene was called to bedside and was concerned for intraoperative hematoma, so the patient was taken emergently for a exploratory laparotomy. PROCEDURE PERFORMED Exploratory laparotomy, right uterine artery ligation. SURGEON Stan Aragon MD TUBER HELPER SURGEON Elizabeth Eugene MD INTRAOPERATIVE CONSULT SURGEON To general surgery, trauma surgery; Dr. Ant MD. ANESTHESIA General. ESTIMATED BLOOD LOSS 300 mL. IV FLUID REPLACEMENT 3800 mL of crystalloid. TRANSFUSION 2 units of packed red blood cells were transfused intraoperatively. URINE OUTPUT 425 mL of clear urine draining in the Rhodes bag at the conclusion of procedure. COMPLICATIONS Include a right broad ligament and retroperitoneal hematoma extending up to the liver edge but without expansion once tamponaded intraoperatively and laceration of accessory branches of the right uterine artery that were successfully ligated intraoperatively. Uterine atony requiring IM doses of methergine x 2 and rectal cytotec 800mcg x 1 intraoperatively. SPECIMENS None. INTRAOPERATIVE FINDINGS Include large right broad ligament and retroperitoneal hematoma extending from the level of the lower uterine segment up to the liver edge, this was able to be easily contained with pressure intraoperatively and branches of the right uterine artery were successfully ligated, preventing any further bleeding. PROCEDURE IN DETAIL Due to the emergent nature of the procedure, the patient was rushed to the operating room where general anesthesia was administered without difficulty and found to be adequate. The previously made Pfannenstiel incision was reopened with a scalpel as was the fascia and rectus muscles which were bluntly. Peritoneum was reentered bluntly in the same suture lines as previous. The uterus was found to be somewhat boggy and atonic, it was able to be exteriorized. There was an approximately 200 mL clot evacuated from the right lower uterine segment and broad ligament/retroperitoneal hematoma was palpated and followed up to the liver edge. Irrigation with suction was performed and packing of sterile moist lap sponges was performed along the length of the hematoma. Interventional radiology was initially consulted, they were unavailable so trauma surgery was consulted and with the help of Dr. Cain, the branches of the right uterine artery were able to be isolated and ligated with clips and suture. Please see his separate dictated operative note for full details. Surgicel was then used to pack this area in the right lower uterine segment. Excellent hemostasis was noted. All sterile moist packs were removed from the abdomen. The uterus was returned to the abdomen and at this time it was found to be firm, no longer atonic. Two doses of IM methergine has been administered by Anesthesia team during the procedure and RN placed 800mcg rectal misoprostol intraoperatively to help correct atony on surgeon's request. There was no expansion of the hematoma noted. There was good urine output noted. Bladder was thoroughly examined. There were no defects. Additional irrigation with suction was performed, again excellent hemostasis was noted, normal bilateral ovaries and fallopian tubes were seen. The peritoneum was closed in a running layer with 2-0 chromic. The fascia was closed in a running layer with #1 Vicryl, subcutaneous tissue was irrigated copiously with warm sterile saline and 4-0 Monocryl was used to close the skin in subcuticular fashion. A pressure dressing was then placed as was an abdominal binder. The procedure concluded at this point. Due to the emergent nature of this repeat surgical procedure within 2 hours of the conclusion of the section, it was decided the patient should be admitted to [facility] overnight for telemetry for close monitoring. We will start her on Unasyn every 6 hours x4 doses and monitor H&H closely every 4 hours. There are additional units of blood all ready if necessary. At this time the patient's vital signs are within normal limits. She is awake, alert and states her pain is well-controlled. Her estimated length of stay is possibly four or more postoperative days. MD SAHCIN Quijano/MALOU /3:09 AM /1:21 PM MTDD
[2017-02-21] MEDS ORDERED: DIPHTH/TETANUS/ACEL PERTUSSIS (BOOSTER) 0.5 ML VIAL/PFS IM ONE (16:00)
[2017-02-21] MEDS ORDERED: MEASLES, MUMPS, RUBELLA VACCINE 0.5 ML VIAL SQ ONE (16:00)
[2017-02-21] MEDS: SIMETHICONE 80 MG CHEWABLE TAB PO PRN (21:07)
[2017-02-22 03:00] VITALS: BP 114/63; PULSE 106; RESP 20; TEMP 98.2
[2017-02-22] MEDS: AMPICILLIN-SULBACTAM INJ 3 GM in SODIUM CHLORIDE 0.9% INJ 100 ML IV SCH (03:20)
[2017-02-22] MEDS: DOCUSATE SODIUM 50 MG/SENNA 8.6 MG TAB PO PRN ×2 (05:52→18:31)
[2017-02-22] MEDS: SIMETHICONE 80 MG CHEWABLE TAB PO PRN ×2 (05:52→18:31)
[2017-02-22] MEDS: PCA - TOTAL MG MORPHINE DELIVERED PER SHIFT SCH (05:54)
[2017-02-22 05:58] LABS: AUTOMATED NEUTROPHIL # 9.3 TH/MM3 (1.8-7.7); BASOPHIL # 0.1 TH/MM3 (0-0.2); BASOPHIL % 0.5 % (0.0-2.0); EOSINOPHIL # 0.1 TH/MM3 (0-0.4); EOSINOPHIL % 1.2 % (0.0-4.0); HEMATOCRIT 26.1 % (35.0-46.0); HEMO FLAGS DIFF FINAL; LYMPH % 13.7 % (9.0-44.0); LYMPHOCYTE # 1.7 TH/MM3 (1.0-4.8); MEAN CELL VOLUME 88.8 FL (80.0-100.0); MEAN CORPUSCULAR HEMOGLOBIN 29.6 PG (27.0-34.0); MEAN CORPUSCULAR HGB CONC 33.4 % (32.0-36.0); MONO % 8.7 % (0.0-8.0); NEUT % 75.9 % (16.0-70.0); PLATELET COUNT 181 TH/MM3 (150-450); RED BLOOD COUNT 2.94 MIL/MM3 (4.00-5.30); RED CELL DISTRIBUTION WIDTH 17.7 % (11.6-17.2); WHITE BLOOD COUNT 12.3 TH/MM3 (4.0-11.0)
[2017-02-22 06:22] LABS: POTASSIUM 3.4 MEQ/L (3.5-5.1)
--- NOTE | 2017-02-22 08:17 | HHI.OB ---
Subjective Post Operative Day: 2 Remarks POD#2; c/o pain on her missile inspector, VSS, afebrile. Objective Vitals/I&O Vital Signs Date Time Temp Pulse Resp B/P Pulse Ox O2 Delivery O2 Flow Rate FiO2 02/22/17 05:54 20 02/22/17 03:00 98.2 106 20 114/63 02/22/17 00:50 18 02/21/17 23:43 113 100/61 02/21/17 23:43 98.3 22 02/21/17 22:54 18 02/21/17 22:00 18 02/21/17 20:20 98.6 96 20 95/67 02/21/17 14:45 98.0 90 18 02/21/17 14:45 95/61 02/21/17 14:00 95 02/21/17 14:00 26 02/21/17 12:00 98.3 95 26 100/62 98 02/21/17 12:00 95 02/21/17 10:00 86 02/21/17 09:24 16 02/21/17 08:52 100 Nasal Cannula 1.00 Result Diagram: 02/22/17 0459 02/22/17 0459 Objective Remarks GENERAL: Well-nourished, well-developed patient. CARDIOVASCULAR: Regular rate and rhythm without murmurs, gallops, or rubs. RESPIRATORY: Breath sounds equal bilaterally. No accessory muscle use. ABDOMEN/GI: Abdomen soft, non-tender, bowel sounds present. Incision: binding in place. Dry. Fundus: Firm, non-tender at umbilicus. GENITOURINARY: Light bleeding. EXTREMITIES: No cyanosis or edema, non-tender, without signs of DVT. Medications and IVs Current Medications Medications (Trade) Dose Ordered Sig/Jacquelin Route Start Time Stop Time Status Last Admin (NS Flush) 2 ml BID IV FLUSH 02/20/17 22:00 02/21/17 09:00 (NS Flush) 2 ml UNSCH PRN IV FLUSH 02/20/17 22:00 (Mylicon Chew) 80 mg QID PRN PO 02/20/17 22:00 02/22/17 05:52 (Tylenol) 650 mg Q6H PRN PO 02/20/17 22:00 (Percocet 5-325 Mg) 1 tab Q4H PRN PO 02/20/17 22:00 02/22/17 05:53 (Percocet 5-325 Mg) 2 tab Q4H PRN PO 02/20/17 22:00 (Teri-Colace) 2 tab Q12H PRN PO 02/20/17 22:00 02/22/17 05:52 (Zofran Inj) 4 mg Q6H PRN IV PUSH 02/20/17 22:00 (Narcan Inj) 0.4 mg UNSCH PRN IV 02/21/17 02:45 (Benadryl Inj) 25 mg Q6H PRN IV 02/21/17 02:45 (Morphine 1 Mg/ ml HEALTH PROFESSOR) 30 mg UNSCH IV 02/21/17 02:45 02/21/17 22:54 HEALTH PROFESSOR Dosage Infused (Pha) 1 Q8HR .XX 02/21/17 06:00 02/22/17 05:54 (Milk Of Magnesia Liq) 30 ml Q12H PRN PO 02/21/17 02:45 (Senokot) 17.2 mg Q12H PRN PO 02/21/17 02:45 (Dulcolax Supp) 10 mg DAILY PRN RECTAL 02/21/17 02:45 (Lactulose Liq) 30 ml DAILY PRN PO 02/21/17 02:45 Assessment/Plan Problem List: (1) Labor and delivery indication for care or intervention Assessment and Plan POD#2 s/p emergency LTCD for face presentation in labor (mentum posterior); POD# 0 s/p exploratory laparotomy & R uterine artery ligation for acute hypotension & finding of R broad ligament/retroperitoneal hematoma. Stable, cont. missile inspector, ambulate. Discharge Planning not yet meeting criteria Oel Ramos MD Feb 22, 2017 08:17
[2017-02-22 09:00] VITALS: BP 101/60; PULSE 102; RESP 16; TEMP 98.2
[2017-02-22] MEDS: oxyCODONE/ACETAMINOPHEN 5 MG/325 MG TAB PO PRN ×2 (12:56→17:59)
[2017-02-22 16:28] VITALS: BP 109/63; PULSE 96; RESP 18; TEMP 98.3
[2017-02-22 20:00] VITALS: BP 113/77; PULSE 96; RESP 18; TEMP 98.2
[2017-02-22] MEDS: MORPHINE SULFATE 30 MG/30 ML PCA IV SCH (20:33)
[2017-02-23] VITALS: BP 127/74; PULSE 79; RESP 18; TEMP 98
[2017-02-23 04:00] VITALS: BP 124/73; PULSE 82; RESP 16; TEMP 98.4
[2017-02-23] MEDS: PCA - TOTAL MG MORPHINE DELIVERED PER SHIFT SCH (06:00)
[2017-02-23 06:25] LABS: HEMATOCRIT 27.8 % (35.0-46.0); MEAN CELL VOLUME 88.8 FL (80.0-100.0); MEAN CORPUSCULAR HEMOGLOBIN 30.3 PG (27.0-34.0); MEAN CORPUSCULAR HGB CONC 34.1 % (32.0-36.0); PLATELET COUNT 249 TH/MM3 (150-450); RED BLOOD COUNT 3.13 MIL/MM3 (4.00-5.30); RED CELL DISTRIBUTION WIDTH 17.4 % (11.6-17.2); REVIEW FLAG FINAL; WHITE BLOOD COUNT 13.6 TH/MM3 (4.0-11.0)
[2017-02-23 08:00] VITALS: BP 126/74; PULSE 67; RESP 16; TEMP 98.8
[2017-02-23 08:10] VITALS: TEMP 98.1
[2017-02-23] MEDS: DOCUSATE SODIUM 50 MG/SENNA 8.6 MG TAB PO PRN (09:08)
[2017-02-23] MEDS: SIMETHICONE 80 MG CHEWABLE TAB PO PRN (09:08)
[2017-02-23] MEDS: oxyCODONE/ACETAMINOPHEN 5 MG/325 MG TAB PO PRN ×3 (09:09→21:46)
--- NOTE | 2017-02-23 11:19 | HHI.OB ---
Subjective Post Operative Day: 3 Remarks POD#3, Slow to ambulate, no flatus/BM, No N/V/D. afebrile Objective Vitals/I&O Vital Signs Date Time Temp Pulse Resp B/P Pulse Ox O2 Delivery O2 Flow Rate FiO2 02/23/17 08:10 98.1 02/23/17 08:00 98.8 67 16 02/23/17 08:00 126/74 02/23/17 06:00 18 02/23/17 04:00 98.4 82 16 124/73 02/23/17 00:00 98.0 79 18 127/74 02/22/17 20:33 17 02/22/17 20:00 98.2 02/22/17 20:00 96 18 113/77 02/22/17 16:28 98.3 96 18 109/63 Result Diagram: 02/23/17 0558 02/22/17 0459 Objective Remarks GENERAL: Well-nourished, well-developed patient. CARDIOVASCULAR: Regular rate and rhythm without murmurs, gallops, or rubs. RESPIRATORY: Breath sounds equal bilaterally. No accessory muscle use. ABDOMEN/GI: Abdomen soft, distended, hypoactive BS. Incision: binding in place. Dry. Fundus: Firm, non-tender at umbilicus. GENITOURINARY: Light bleeding. EXTREMITIES: No cyanosis or edema, bilateral calf pain,no cords,no homans , low probability for DVT. Medications and IVs Current Medications Medications (Trade) Dose Ordered Sig/Jacquelin Route Start Time Stop Time Status Last Admin (NS Flush) 2 ml BID IV FLUSH 02/20/17 22:00 02/21/17 09:00 (NS Flush) 2 ml UNSCH PRN IV FLUSH 02/20/17 22:00 (Mylicon Chew) 80 mg QID PRN PO 02/20/17 22:00 02/23/17 09:08 (Tylenol) 650 mg Q6H PRN PO 02/20/17 22:00 (Percocet 5-325 Mg) 1 tab Q4H PRN PO 02/20/17 22:00 02/22/17 05:53 (Percocet 5-325 Mg) 2 tab Q4H PRN PO 02/20/17 22:00 02/23/17 09:09 (Teri-Colace) 2 tab Q12H PRN PO 02/20/17 22:00 02/23/17 09:08 (Zofran Inj) 4 mg Q6H PRN IV PUSH 02/20/17 22:00 (Narcan Inj) 0.4 mg UNSCH PRN IV 02/21/17 02:45 (Benadryl Inj) 25 mg Q6H PRN IV 02/21/17 02:45 02/22/17 08:46 (Morphine 1 Mg/ ml REBEAMER) 30 mg UNSCH IV 02/21/17 02:45 02/22/17 20:33 REBEAMER Dosage Infused (Pha) 1 Q8HR .XX 02/21/17 06:00 02/23/17 06:00 (Milk Of Magnesia Liq) 30 ml Q12H PRN PO 02/21/17 02:45 (Senokot) 17.2 mg Q12H PRN PO 02/21/17 02:45 (Dulcolax Supp) 10 mg DAILY PRN RECTAL 02/21/17 02:45 (Lactulose Liq) 30 ml DAILY PRN PO 02/21/17 02:45 Assessment/Plan Problem List: (1) Labor and delivery indication for care or intervention Assessment and Plan POD#2 s/p emergency LTCD for face presentation in labor (mentum posterior); POD# 0 s/p exploratory laparotomy & R uterine artery ligation for acute hypotension & finding of R broad ligament/retroperitoneal hematoma. 1) Postop ileus,order ABD/KUB, needs to ambulate, D/C REBEAMER ,convert to oral pain meds. 2) R/o DVT, add sequentials, order dopplers. ambulate 3) anemia, improved. Discharge Planning not yet meeting criteria Attending Attestation seen by Ole Arredondo MD Feb 23, 2017 11:19
--- NOTE | 2017-02-23 12:12 | RADRPT ---
EXAM DATE/TIME: 02/23/2017 11:19 [facility] COMPARISON: No previous studies available for comparison. INDICATIONS : Abdominal pain, obstruction. MEDICAL HISTORY : None. SURGICAL HISTORY : None. ENCOUNTER: Initial ACUITY: 2 days PAIN SCORE: 10/10 LOCATION: Bilateral abdomen. FINDINGS: Supine view of the abdomen was performed. Gaseous distention of what appears to be large bowel.. No abnormal masses, calcifications, or organomegaly is seen. The osseous structures are unremarkable. CONCLUSION: Gaseous distention of what appears to be large bowel. Could be ileus. Followup studies recommended. Robert Hilton MD on February 23, 2017 at 12:07 Board Certified Radiologist. This report was verified electronically.
--- NOTE | 2017-02-23 12:32 | RADRPT ---
EXAM DATE/TIME: 02/23/2017 11:28 [facility] COMPARISON: No previous studies available for comparison. INDICATIONS : Bilateral leg pain and swelling. MEDICAL HISTORY : Genital herpes. Measles. Asthma. SURGICAL HISTORY : section. ENCOUNTER: Initial ACUITY: 2 day PAIN SCORE: 3/10 LOCATION: Bilateral legs. TECHNIQUE: Venous ultrasound of the left and right leg was performed from the inguinal ligament to the proximal calf. Real-time, color Doppler and spectral tracing, compression and augmentation techniques were us ed. FINDINGS: RIGHT LEG: There is normal compressibility of the deep venous system from the inguinal region to the proximal ca lf. No echogenic clot is seen in the lumen of the common femoral, femoral, popliteal, and posterior tibial veins. There is a normal response of the venous system to proximal and distal augmentation an d respiration. LEFT LEG: There is normal compressibility of the deep venous system from the inguinal region to the proximal ca lf. No echogenic clot is seen in the lumen of the common femoral, femoral, popliteal, and posterior tibial veins. There is a normal response of the venous system to proximal and distal augmentation an d respiration. CONCLUSION: No DVT in either lower extremity. Robert Hilton MD on February 23, 2017 at 12:30 Board Certified Radiologist. This report was verified electronically.
[2017-02-23] MEDS: KETOROLAC TROMETHAMINE 60 MG/2 ML (IM) VIAL IM PRN (15:20)
[2017-02-23 20:31] VITALS: BP 126/86; PULSE 77; RESP 14; TEMP 97.8
[2017-02-24] MEDS: KETOROLAC TROMETHAMINE 60 MG/2 ML (IM) VIAL IM PRN ×3 (01:19→18:03)
[2017-02-24] MEDS: SIMETHICONE 80 MG CHEWABLE TAB PO PRN ×3 (05:03→20:53)
[2017-02-24] MEDS: oxyCODONE/ACETAMINOPHEN 5 MG/325 MG TAB PO PRN ×4 (05:06→21:58)
[2017-02-24 07:04] LABS: BICARBONATE 26.3 MEQ/L (21.0-32.0); POTASSIUM 3.3 MEQ/L (3.5-5.1)
[2017-02-24 07:07] LABS: AUTOMATED NEUTROPHIL # 5.7 TH/MM3 (1.8-7.7); BASOPHIL % 0.2 % (0.0-2.0); EOSINOPHIL # 0.4 TH/MM3 (0-0.4); EOSINOPHIL % 5.7 % (0.0-4.0); HEMATOCRIT 23.6 % (35.0-46.0); HEMO FLAGS DIFF FINAL; LYMPH % 16.2 % (9.0-44.0); LYMPHOCYTE # 1.3 TH/MM3 (1.0-4.8); MEAN CELL VOLUME 87.9 FL (80.0-100.0); MEAN CORPUSCULAR HEMOGLOBIN 30.8 PG (27.0-34.0); MEAN CORPUSCULAR HGB CONC 35.1 % (32.0-36.0); MONO % 5.7 % (0.0-8.0); NEUT % 72.2 % (16.0-70.0); PLATELET COUNT 236 TH/MM3 (150-450); RED BLOOD COUNT 2.69 MIL/MM3 (4.00-5.30); RED CELL DISTRIBUTION WIDTH 17.1 % (11.6-17.2); WHITE BLOOD COUNT 7.9 TH/MM3 (4.0-11.0)
[2017-02-24 09:30] VITALS: BP 116/81; PULSE 93; RESP 18; TEMP 98.2
[2017-02-24] MEDS: DOCUSATE SODIUM 50 MG/SENNA 8.6 MG TAB PO PRN (11:07)
--- NOTE | 2017-02-24 11:22 | HHI.OB ---
Subjective Post Operative Day: 3 Remarks POD#3; iS AMBULATING SLOWLY, IMPROVING slowly Objective Vitals/I&O Vital Signs Date Time Temp Pulse Resp B/P Pulse Ox O2 Delivery O2 Flow Rate FiO2 02/23/17 20:31 97.8 77 14 126/86 Result Diagram: 02/24/1762402/24/17624 Objective Remarks GENERAL: Well-nourished, well-developed patient. CARDIOVASCULAR: Regular rate and rhythm without murmurs, gallops, or rubs. RESPIRATORY: Breath sounds equal bilaterally. No accessory muscle use. ABDOMEN/GI: Abdomen soft, distended, hypoactive BS. Incision: binding in place. Dry. Fundus: Firm, non-tender at umbilicus. GENITOURINARY: Light bleeding. EXTREMITIES: No cyanosis or edema, bilateral calf pain,no cords,no homans , low probability for DVT. Medications and IVs Current Medications Medications (Trade) Dose Ordered Sig/Jacquelin Route Start Time Stop Time Status Last Admin (NS Flush) 2 ml BID IV FLUSH 02/20/17 22:00 02/21/17 09:00 (NS Flush) 2 ml UNSCH PRN IV FLUSH 02/20/17 22:00 (Mylicon Chew) 80 mg QID PRN PO 02/20/17 22:00 02/24/17 11:07 (Tylenol) 650 mg Q6H PRN PO 02/20/17 22:00 (Percocet 5-325 Mg) 1 tab Q4H PRN PO 02/20/17 22:00 02/22/17 05:53 (Percocet 5-325 Mg) 2 tab Q4H PRN PO 02/20/17 22:00 02/24/17 11:08 (Teri-Colace) 2 tab Q12H PRN PO 02/20/17 22:00 02/24/17 11:07 (Zofran Inj) 4 mg Q6H PRN IV PUSH 02/20/17 22:00 (Milk Of Magnesia Liq) 30 ml Q12H PRN PO 02/21/17 02:45 02/24/17 05:03 (Senokot) 17.2 mg Q12H PRN PO 02/21/17 02:45 (Dulcolax Supp) 10 mg DAILY PRN RECTAL 02/21/17 02:45 (Lactulose Liq) 30 ml DAILY PRN PO 02/21/17 02:45 (Toradol Inj) 15 mg Q6HR PRN IM 02/23/17 12:00 02/27/17 11:59 02/24/17 11:08 Assessment/Plan Problem List: (1) Labor and delivery indication for care or intervention Assessment and Plan POD#3s/p emergency LTCD for face presentation in labor (mentum posterior); POD# 0 s/p exploratory laparotomy & R uterine artery ligation for acute hypotension & finding of R broad ligament/retroperitoneal hematoma. 1) Postop ileus resolving. 2) anemia, slight drop in Hgb from yesterday, clinically stable,good uop,no orthostatic symptoms Discharge Planning Does not yet meet criteria Attending Attestation seen by Ole Arredondo MD Feb 24, 2017 11:22
[2017-02-25] MEDS: KETOROLAC TROMETHAMINE 60 MG/2 ML (IM) VIAL IM PRN ×2 (00:32→07:06)
[2017-02-25] MEDS: oxyCODONE/ACETAMINOPHEN 5 MG/325 MG TAB PO PRN ×2 (05:42→12:05)
[2017-02-25 05:55] LABS: AUTOMATED NEUTROPHIL # 7.8 TH/MM3 (1.8-7.7); BASOPHIL % 0.2 % (0.0-2.0); EOSINOPHIL # 0.5 TH/MM3 (0-0.4); EOSINOPHIL % 5.3 % (0.0-4.0); HEMATOCRIT 25.9 % (35.0-46.0); HEMO FLAGS DIFF FINAL; LYMPH % 12.5 % (9.0-44.0); LYMPHOCYTE # 1.3 TH/MM3 (1.0-4.8); MEAN CELL VOLUME 89.4 FL (80.0-100.0); MEAN CORPUSCULAR HEMOGLOBIN 31.1 PG (27.0-34.0); MEAN CORPUSCULAR HGB CONC 34.8 % (32.0-36.0); MONO % 6.9 % (0.0-8.0); NEUT % 75.1 % (16.0-70.0); PLATELET COUNT 292 TH/MM3 (150-450); RED CELL DISTRIBUTION WIDTH 17.3 % (11.6-17.2); WHITE BLOOD COUNT 10.4 TH/MM3 (4.0-11.0)
--- NOTE | 2017-02-25 07:56 | HHI.OB ---
Subjective Post Operative Day: 5 Remarks Feeling better. Has passed flatus. She tolerated breakfast well. Ambulating, voiding w/o difficulty. Objective Vitals/I&O Vital Signs Date Time Temp Pulse Resp B/P Pulse Ox O2 Delivery O2 Flow Rate FiO2 02/24/17 09:30 98.2 93 18 116/81 Result Diagram: 02/25/17 0511 02/24/17 0625 Objective Remarks GENERAL: Well-nourished, well-developed patient. CARDIOVASCULAR: Regular rate and rhythm without murmurs, gallops, or rubs. RESPIRATORY: Breath sounds equal bilaterally. No accessory muscle use. ABDOMEN/GI: Abdomen soft, distended, hypoactive BS. Incision:c/d/i Fundus: Firm, non-tender at umbilicus. GENITOURINARY: Light bleeding. EXTREMITIES: No cyanosis or edema, bilateral calf pain,no cords,no homans , low probability for DVT. Michi varma on ( neg doppler in ) Medications and IVs Current Medications Medications (Trade) Dose Ordered Sig/Jacquelin Route Start Time Stop Time Status Last Admin (NS Flush) 2 ml BID IV FLUSH 02/20/17 22:00 02/21/17 09:00 (NS Flush) 2 ml UNSCH PRN IV FLUSH 02/20/17 22:00 (Mylicon Chew) 80 mg QID PRN PO 02/20/17 22:00 02/24/17 20:53 (Tylenol) 650 mg Q6H PRN PO 02/20/17 22:00 (Percocet 5-325 Mg) 1 tab Q4H PRN PO 02/20/17 22:00 02/22/17 05:53 (Percocet 5-325 Mg) 2 tab Q4H PRN PO 02/20/17 22:00 02/25/17 05:42 (Teri-Colace) 2 tab Q12H PRN PO 02/20/17 22:00 02/24/17 11:07 (Zofran Inj) 4 mg Q6H PRN IV PUSH 02/20/17 22:00 (Milk Of Magnesia Liq) 30 ml Q12H PRN PO 02/21/17 02:45 02/24/17 05:03 (Senokot) 17.2 mg Q12H PRN PO 02/21/17 02:45 (Dulcolax Supp) 10 mg DAILY PRN RECTAL 02/21/17 02:45 (Lactulose Liq) 30 ml DAILY PRN PO 02/21/17 02:45 (Toradol Inj) 15 mg Q6HR PRN IM 02/23/17 12:00 02/27/17 11:59 02/25/17 07:06 Assessment/Plan Problem List: (1) Labor and delivery indication for care or intervention Assessment and Plan POD#5 s/p emergency LTCD for face presentation in labor (mentum posterior); POD# 4 s/p exploratory laparotomy & R uterine artery ligation for acute hypotension & finding of R broad ligament/retroperitoneal hematoma. 1) Postop ileus resolved. 2) anemia, hgb stable. transfused 2 u prbc intraop. Dispo home today, f/u this saturday in office l Discharge Planning Loreta Goss MD Feb 25, 2017 07:56
[2017-02-25] MEDS ORDERED: OXYC1TAB63 PO (11:07)
[2017-02-25] MEDS ORDERED: IBUP-232 PO (11:07)
--- NOTE | 2017-02-25 11:09 | HHI.DCPOC ---
Discharge Care Plan Diagnosis: (1) Status post primary low transverse section (2) Postoperative hematoma involving genitourinary system following genitourinary procedure Your Health Problems Are: Incisions/drains delivery Report Symptoms to Your Doctor -Temperature above 100.5 degrees -Redness, of incision or excessive or foul smelling drainage -Unusual pain or calf pain -Increased vaginal bleeding -Painful or difficulty urinating -Feelings of extreme sadness or anxiety after 2 weeks Goals to Promote Your Health * To prevent worsening of your condition and complications * To maintain your health at the optimal level Directions to Meet Your Goals Take your medications as prescribed Follow your dietary instruction Follow activity as directed Ensure plenty of rest for recovery Drink fluids for hydration Keep your appointments as scheduled Take your immunizations and boosters as scheduled If your symptoms worsen call your PCP, if no PCP go to Urgent Care Center or Emergency Room Smoking is Dangerous to Your Health. Avoid second hand smoke Call the 24-hour crisis hotline for domestic abuse at Loreta Goss MD Feb 25, 2017 11:09
[2017-02-25] MEDS: DOCUSATE SODIUM 50 MG/SENNA 8.6 MG TAB PO PRN (12:05)
--- NOTE | 2017-03-05 22:27 | MP ---
cc: MEKA DAVIS MD DATE OF SURGERY 02/21/17 PREOPERATIVE DIAGNOSIS Status post vaginal delivery of retroperitoneal bleeding. INDICATIONS FOR PROCEDURE This 36-year-old female delivered through a section a few hours earlier and I was called emergently to the OR by the paintings conservator/waste management specialist because the patient had a retroperitoneal bleeding which was discovered as patient became hypotensive. She was taken back to the operating room. On my arrival, the patient was prepped, draped, opened and the uterus was delivered into the wound shrinking down. The patient was explored. She was noted to have bleeding into fallopian ligament extending to the retroperitoneum toward the internal iliac artery. This area is explored. There is no active bleeding from internal iliac artery considering that it this area is tamponaded off by retroperitoneum and hematoma is not enlarging. Therefore, some warm laps are placed in this area. Tube and ligamentum teres uteri is explored. There is an opening in the peritoneum over it which was made by the gynecology to evaluate the area. There is some bleeding from this area from the small branches. These are controlled with some 2-0 Vicryl stick ties [id number]. At a point, there is no more active bleeding. The area is irrigated with copious amounts of saline. Again some pressure is held with warm laps and, at this point, bleeding stops. Once more retroperitoneum is explored. Retroperitoneal hematoma is not enlarging and therefore procedure is terminated. From my point at which point is taken back over by the waste management specialist. The patient tolerated this part of the procedure well. Meka GALINDO/ /3:06 PM /10:25 PM
== END 2017-02-25 16:26 | disposition home or self-care (01) | DRG 765 ==
LOC: H2EA 12:40 → H2EB 02-21 00:13 → N03A 02-21 04:40 → H1EA 02-21 14:23
PROVIDERS: ADMIT Obstetrics & Gynecology; ATTEND Obstetrics & Gynecology
PROC: 10D00Z1 Extraction of Products of Conception, Low, Open Approach (ICD-10-PCS; principal; 2017-02-20)
PROC: 0W3J0ZZ Control Bleeding in Pelvic Cavity, Open Approach (ICD-10-PCS; 2017-02-21)
PROC: 04LY0ZZ Occlusion of Lower Artery, Open Approach (ICD-10-PCS; 2017-02-21)
PROC: 0W3J0ZZ Control Bleeding in Pelvic Cavity, Open Approach (ICD-10-PCS; 2017-02-21)
DX: O98.32 Other infections with a predominantly sexual mode of transmission complicating childbirth (principal); K66.1 Hemoperitoneum; N99.840 Postprocedural hematoma of a genitourinary system organ or structure following a genitourinary system procedure; K91.3 Postprocedural intestinal obstruction; A60.00 Herpesviral infection of urogenital system, unspecified; I95.9 Hypotension, unspecified; N83.7 Hematoma of broad ligament; O32.3XX0 Maternal care for face, brow and chin presentation, not applicable or unspecified; O76 Abnormality in fetal heart rate and rhythm complicating labor and delivery; O69.89X0 Labor and delivery complicated by other cord complications, not applicable or unspecified; O90.89 Other complications of the puerperium, not elsewhere classified; R00.0 Tachycardia, unspecified; O90.81 Anemia of the puerperium; O99.52 Diseases of the respiratory system complicating childbirth; J45.20 Mild intermittent asthma, uncomplicated; Z37.0 Single live birth; Z3A.40 40 weeks gestation of pregnancy
CPT/HCPCS: 36430; 74000; 80048; 81001; 82805; 85025; 85027; 85610; 85730; 86850; 86900; 86901; 86920; 87641; 90715; 93970; C1765; J0131; J0295; J0690; J1200; J1885; J2210; J2270; J2274; J2405; J2590; J3010; J7120; P9016